=== PATIENT | female | born 1955 | race Caucasian/White ===

== ENCOUNTER 2017-03-03 07:09 | Day surgery (SDC) | payer BC ==
[2017-03-03] MEDS ORDERED: LACTATED RINGERS 1,000 ML IV ONE (07:14)
[2017-03-03] MEDS ORDERED: fentaNYL 100 MCG/2 ML VIAL IVP ONE (08:44)
[2017-03-03] MEDS ORDERED: MIDAZOLAM 2 MG/2 ML VIAL IVP ONE (08:44)
[2017-03-03 09:47] VITALS: BP 127/61
== END 2017-03-03 07:10 | disposition home or self-care (01) ==
LOC: SDS 07:09
PROVIDERS: ATTEND Surgery
PROC: 0DJD8ZZ Inspection of Lower Intestinal Tract, Via Natural or Artificial Opening Endoscopic (ICD-10-PCS; principal; 2017-03-03 08:15)
DX: Z12.11 Encounter for screening for malignant neoplasm of colon (principal); K57.30 Diverticulosis of large intestine without perforation or abscess without bleeding; K55.20 Angiodysplasia of colon without hemorrhage; K64.8 Other hemorrhoids
CPT/HCPCS: 45378; J7120

== ENCOUNTER 2023-04-02 12:37 | Emergency (ER) | payer MEDICARE, OTHER ==
--- NOTE | 2023-04-02 14:22 | XRAY Report ---
PROCEDURE: Knee 4+V LT INDICATIONS: Trauma TECHNIQUE: 4 views of the knee(s) were acquired. COMPARISON: None. FINDINGS: Bones: Mild degenerative changes. No displaced fracture or dislocation. Possible mild patellar enthes opathy. There is a questionable nondisplaced lucency seen on oblique view at the lateral tibial plate au. Soft tissues: Moderate joint effusion. IMPRESSION: Questionable nondisplaced lucency at the lateral tibial plateau could represent artifact or nondispla luciana fracture. There is moderate joint effusion. If there is sufficient concern, consider cross-sectional imaging. Reviewed by: Bhupendra Armstrong MD on 04/02/2023 2:21 PM PST Approved by: Bhupendra Armstrong MD on 04/02/2023 2:21 PM PST Station ID: [id number]
--- NOTE | 2023-04-02 14:24 | XRAY Report ---
PROCEDURE: Wrist 3 View LT INDICATIONS: Trauma TECHNIQUE: 3 views of the wrist were acquired. COMPARISON: None. FINDINGS: Bones: Moderately comminuted and displaced fracture of the distal radius. There is dorsal angulation and traumatic positive ulnar variance. Soft tissues: Soft tissue swelling is present. IMPRESSION: Moderately comminuted and displaced distal radius fracture with impaction. Reviewed by: Bhupendra Armstrong MD on 04/02/2023 2:23 PM PST Approved by: Bhupendra Armstrong MD on 04/02/2023 2:23 PM [facility] Station ID: [id number]
[2023-04-02] MEDS ORDERED: MORPHINE 2 MG/ML CARPUJECT IVP STA (16:04)
[2023-04-02] MEDS ORDERED: ONDANSETRON 4 MG/2 ML VIAL IVP STA (16:04)
--- NOTE | 2023-04-02 16:08 | ED Physician Documentation ---
History of Present Illness - Stated complaint Stated Complaint: L WRIST,L LEG INJURY S/P FALL - Chief complaint Chief Complaint: Trauma Ext - History obtained from History obtained from: Patient - Additonal information Additional information: Patient is a 68-year-old female presenting for evaluation of left wrist and left knee pain after a fall that occurred this morning. Patient reports that she was taking [employer] lights down and thought that she was on the second rung but was actually on the third and went to step off but was still a step above on the ladder. She then fell. She denies hitting her head or having LOC. She is having pain with ambulation. She has obvious deformity to left wrist. Denies prior injuries to either extremity. Review of Systems Constitutional: denies: Fever Cardiac: denies: Chest pain / pressure Respiratory: denies: Dyspnea GI: denies: Abdominal Pain Musculoskeletal: reports: Extremity pain Neurologic: denies: Head injury PD PAST MEDICAL HISTORY - Past Medical History Past Medical History: Yes Cardiovascular: None Respiratory: None Endocrine/Autoimmune: None GI: None : None HEENT: None Psych: Depression Musculoskeletal: None Derm: None - Past Surgical History Past Surgical History: Yes Ortho: Other /TAVERN OPERATOR: Breast reduction, Other - Present Medications Home Medications: Ambulatory Orders Medication Instructions Recorded Confirmed Lidocaine Patch 5% [Lidoderm Patch] 1 patch TOP DAILY PRN #10 patch 04/02/23 Oxycodone HCl/Acetaminophen 1 each PO Q6H PRN #15 tablet 04/02/23 [Percocet 5-325 mg Tablet] - Allergies Allergies/Adverse Reactions: Allergies Allergy/AdvReac Type Severity Reaction Status Date / Time No Known Drug Allergies Allergy Verified 04/02/23 13:18 - Social History Does the pt smoke?: No Smoking Status: Never smoker Does the pt drink ETOH?: Yes Does the pt have substance abuse?: No - Immunizations Immunizations are current?: Yes PD ED PE NORMAL - General General: Alert and oriented X 3, No acute distress, Well developed/nourished - HEENT HEENT: Atraumatic, Moist mucous membranes, Pharynx benign - Neck Neck: Supple, no meningeal sign - Cardiac Cardiac: RRR, Strong equal pulses - Respiratory Respiratory: No respiratory distress - Derm Derm: Warm and dry - Extremities Extremities: Other (Deformity to left wrist, tenderness to left knee on range of motion; Distal pulses intact, motor and sensation distal to site of pain intact) - Neuro Neuro: Alert and oriented X 3, No motor deficit, No sensory deficit, Normal speech Eye Opening: Spontaneous Motor: Obeys Commands Verbal: Oriented GCS Score: 15 Results - Vitals Vitals: Vital Signs - 24 hr 04/02/23 04/02/23 04/02/23 13:12 16:30 17:15 Temperature 36.0 C L Heart Rate 72 80 81 Respiratory 18 30 H 20 Rate Blood Pressure 93/56 L 119/74 O2 Saturation 99 100 If not protocol : Oxygen Flow, liters/minute 04/02/23 04/02/23 04/02/23 17:17 17:25 17:30 Temperature Heart Rate 74 68 74 Respiratory 16 26 H 18 Rate Blood Pressure 119/102 H 97/70 112/66 O2 Saturation 100 100 100 If not protocol 4 4 4 : Oxygen Flow, liters/minute 04/02/23 04/02/23 04/02/23 17:33 17:37 17:40 Temperature 36.5 C Heart Rate 71 79 73 Respiratory 16 25 H 21 Rate Blood Pressure 110/75 108/71 128/75 O2 Saturation 100 100 100 If not protocol 4 4 4 : Oxygen Flow, liters/minute 04/02/23 18:39 Temperature Heart Rate 82 Respiratory 16 Rate Blood Pressure 115/83 H O2 Saturation 99 If not protocol : Oxygen Flow, liters/minute Oxygen O2 Source Nasal cannula Procedures - Reduction Body part reduced: Left, Wrist Fracture or dislocation: Fracture Anesthesia: Morphine, Other (Propofol) Reduction aftercare: NV intact, Alignment improved, Splint applied, Patient tolerated well - Procedural sedation Sedation prep: Informed consent, Time out completed, Last meal (8AM), PE performed, ASA 1 - healthy, ASA 2 - mild disease Sedation Medications: propofol Mallampati classification: II Patient status during sedation: Drowsy, Responds to tactile, Vitals remained stable, Maintained airway, Recovered uneventfully Sedation recovery: Recovered uneventfully Time in sedation (Minutes): 10 PD Medical Decision Making - ED course Complexity details: reviewed results, re-evaluated patient, d/w patient ED course: Pt with fall from 1 rung of ladder. No head injury. Obvious injury to L wrist. XR of L wrist and L knee taken with distal radius fracture noted as well as concern for lateral tibial plateau fracture. D/W Dr. Larios (ortho) - pt may need surgery for wrist but will see how reduction holds in office next week. Also recommends knee immobilizer and to minimize weight bearing in regards to L knee/tibial plateau injury. Pt consented to reduction which resulted in improved alignment. Counseled regarding treatment plan, need for close follow up and concerning symptoms to return for. Departure - Departure Disposition: 01 Home, Self Care Clinical Impression: Fracture of left distal radius, Tibial plateau fracture, left Condition: Stable Instructions: ED Fx Colles Wrist Redu Requ, ED Sedation Procedural Discon, ED Fx Knee Follow-Up: Casa Larios MD [Provider Admit Priv/Credential] - Prescriptions: Lidocaine Patch 5% [Lidoderm Patch] 1 patch TOP DAILY PRN #10 patch PRN Reason: pain Oxycodone HCl/Acetaminophen [Percocet 5-325 mg Tablet] 1 each PO Q6H PRN #15 tablet PRN Reason: pain Comments: You have a broken left wrist that required a reduction in order to get the bones aligned better. You need close follow-up with orthopedic surgery and I have Included the information [place]. [place] [facility] [place] [facility]. There is also concern for fracture in the left knee at the tibial plateau so we have placed you into a knee immobilizer. Ideally he would not put weight on the leg but I have spoken to her orthopedic surgeon and given your other injury with the wrist you will not be able to use crutches and you can put some weight on this but you should try to limit it as much as possible. Please call the orthopedic clinic tomorrow for close follow-up early next week. I have sent a pain medication to [facility] in [place]. I am prescribing a short course of narcotic pain medication for you. These are potentially dangerous and addictive medications that should be used carefully. These medications may constipate you. Take an [id number] stool softener (docusate) twice daily with plenty of water while taking these medications. If you go 24 hours without a bowel movement, take [id number] miralax, per package instructions. Do not drink or drive while taking these medications. If you received narcotic or sedating medications while in the emergency department, do not drive for 24 hours. Store this medication in a safe, secure place and out of reach of children. It is a violation of federal law to give or sell this medication to another person or to use in a manner other than prescribed. The ED will not refill narcotic prescriptions, including prescriptions lost or stolen. To dispose of unwanted medications: 1. [facility] [address] in [place] has a medication drop box. They accept prescription medications (in pill form) Friday through Friday 9:00 a.m. to 5:00 p.m. 2. The [facility] accepts prescription medications (in pill form only) for disposal year round. Call for more information. 3. Contact the [facility] for the next [facility] sponsored prescription drug collection event. , [phone], or [phone]; Note that many narcotic pain relievers also contain Tylenol/acetaminophen. Please ensure that your total dose of acetaminophen from all sources does not exceed 3 g (3000 mg) per day. Forms: PCP List Discharge Date/Time: 04/02/23 18:39
[2023-04-02] MEDS ORDERED: PROPOFOL 200 MG/20 ML VIAL IVP STA (16:34)
[2023-04-02] MEDS ORDERED: SODIUM CHLORIDE 0.9% 1,000 ML IV STA (17:00)
[2023-04-02] MEDS ORDERED: oxyCODONE/ACET 5/325 Prepack 4 PO STA (17:55)
--- NOTE | 2023-04-02 18:04 | XRAY Report ---
PROCEDURE: Wrist 3 View LT INDICATIONS: post reduction TECHNIQUE: 3 views of the wrist were acquired. COMPARISON: None. FINDINGS: Bones: Comminuted distal radius fracture. Improved alignment. Only mild persistent dorsal angulation remains. Soft tissues: Soft tissue swelling. Overlying cast material. IMPRESSION: Improved alignment of comminuted distal radius fracture. Reviewed by: Bhupendra Armstrong MD on 04/02/2023 6:03 PM [facility] Approved by: Bhupendra Armstrong MD on 04/02/2023 6:03 PM [facility] Station ID: [id number]
[2023-04-02 18:48] VITALS: BP 115/83; O2SAT 99
== END 2023-04-02 18:39 | disposition home or self-care (01) ==
LOC: ED 12:37
DX: S52.502A Unspecified fracture of the lower end of left radius, initial encounter for closed fracture (principal); S82.142A Displaced bicondylar fracture of left tibia, initial encounter for closed fracture; W11.XXXA Fall on and from ladder, initial encounter
CPT/HCPCS: 25605; 99152; 99284